=== PATIENT | female | born 1995 | race African-American/Black ===

== ENCOUNTER 2017-10-22 18:46 | Emergency (ER) | payer MEDICAID ==
[~2017-10-22] VITALS: Ht 167.6 cm; Wt 88.6 kg
[~2017-10-22 18:46] MED LIST: AMOXICILLIN 50500 MG PO; MONONESSA 35 MC1 TA1; NO HOME MEDICATIONS; P-D NATAL W/FOL1 TAB PO; ULTRAM 50MG TAB50 MG PO; VOLTAREN 75 DR75 MG PO; ZANTAC 150MG T150 MG PO
[2017-10-22 18:49] VITALS: BP 114/67; PULSE 100; TEMP 98.9
[2017-10-22] MEDS ORDERED: FLAGYL500 MG PO (18:53)
[2017-10-22] MEDS ORDERED: PRENATAL PO (18:53)
[2017-10-22] MEDS ORDERED: CEPHALEXIN500 M1 PO (19:26)
== END 2017-10-22 19:33 | disposition home or self-care (01) ==
LOC: COL.ER 18:46
DX: O99.712 Diseases of the skin and subcutaneous tissue complicating pregnancy, second trimester (principal); L02.31 Cutaneous abscess of buttock; Z3A.15 15 weeks gestation of pregnancy

== ENCOUNTER 2018-04-19 05:48 | Inpatient (IN) | payer MEDICAID ==
[2018-04-19] VITALS (58 sets, daily range): BP systolic 99–152; BP diastolic 53–98; PULSE 64–121; TEMP 97.6–98.4
[~2018-04-19] VITALS: Ht 167.6 cm; Wt 98.6 kg
[~2018-04-19 05:48] MED LIST changes: +CEPHALEXIN500 M1 PO; +FLAGYL500 MG PO; +PRENATAL PO
[2018-04-19 08:33] LABS: BASO % 0.7 % (0.0-2.0); EOS # 0.3 (0.0-0.7); EOS % 5.2 % (0-4.0); GRAN # 2.3 (1.4-6.5); GRAN % 41.7 % (42.2-75.2); HEMOGLOBIN 11.5 g/dl (12.5-16.0); LYMPH # 2.5 (1.2-3.4); LYMPH % 45.5 % (20.0-51.0); MEAN CELL VOLUME 86 fl (80.0-100.0); MEAN CORPUSCULAR HEMOGLOBIN 28 pg (27.0-31.0); MEAN CORPUSCULAR HGB CONC 33 g/dl (33.0-37.0); MEAN PLATELET VOLUME 11.4 fl (7.4-10.4); MONO # 0.4 (0.1-0.6); MONO % 6.7 % (1.7-9.3); PLATELET COUNT 162 K/mm3 (130-400); RED BLOOD COUNT 4.07 M/mm3 (4.10-5.30); REDCELL DISTRIBUTION WIDTH-CV 15.8 % (11.5-14.5)
[2018-04-19 08:34] LABS: HEMATOCRIT 34.8 % (37.0-47.0)
[2018-04-20 00:45] VITALS: BP 110/62; PULSE 77
[2018-04-20 01:30] VITALS: BP 110/62; PULSE 77; TEMP 98
[2018-04-20 07:00] VITALS: BP 120/67; PULSE 83; TEMP 98.7
[2018-04-20 07:45] LABS: HEMOGLOBIN 11.4 g/dl (12.5-16.0)
[2018-04-20 07:51] LABS: HEMATOCRIT 34.6 % (37.0-47.0)
[2018-04-20] MEDS ORDERED: PERCOCET 325 MG1 TA2 PO (09:41)
[2018-04-20] MEDS ORDERED: IBU600 MG PO (09:41)
[2018-04-20 11:00] VITALS: BP 108/58; PULSE 76; TEMP 97.8
[2018-04-20 15:36] VITALS: BP 99/73; PULSE 65; TEMP 97.8
[2018-04-20 20:15] VITALS: BP 116/78; PULSE 84; TEMP 97.8
[2018-04-21 08:03] VITALS: BP 108/59; PULSE 88; TEMP 98.1
== END 2018-04-21 10:50 | disposition home or self-care (01) | DRG 775 ==
LOC: LDRO 05:48 → LDR 05:50 → OB 04-20 01:30
PROVIDERS: Obstetrics & Gynecology
PROC: 10D07Z6 Extraction of Products of Conception, Vacuum, Via Natural or Artificial Opening (ICD-10-PCS; principal; 2018-04-19)
DX: O76 Abnormality in fetal heart rate and rhythm complicating labor and delivery (principal); Z3A.40 40 weeks gestation of pregnancy; Z37.0 Single live birth; O77.0 Labor and delivery complicated by meconium in amniotic fluid; O99.02 Anemia complicating childbirth; O99.214 Obesity complicating childbirth
CPT/HCPCS: J2590; J7120

== ENCOUNTER 2019-12-24 17:52 | Emergency (ER) | payer MEDICAID ==
[~2019-12-24] VITALS: Ht 167.6 cm; Wt 81.8 kg
[~2019-12-24 17:52] MED LIST changes: +IBU600 MG PO; +PERCOCET 325 MG1 TA2 PO
[2019-12-24 17:55] VITALS: BP 116/93; TEMP 98.9
[2019-12-24] MEDS ORDERED: FLEXERIL 1010 MG/TAB PO (21:04)
[2019-12-24] MEDS ORDERED: LIDODERM 5% PATC1 EA TP (21:04)
[2019-12-24 21:13] VITALS: PULSE 83
== END 2019-12-24 21:13 | disposition home or self-care (01) ==
LOC: COL.ER 17:52
DX: S16.1XXA Strain of muscle, fascia and tendon at neck level, initial encounter (principal); S40.012A Contusion of left shoulder, initial encounter; S50.12XA Contusion of left forearm, initial encounter; R20.2 Paresthesia of skin; R40.2412 Glasgow coma scale score 13-15, at arrival to emergency department; V43.52XA Car driver injured in collision with other type car in traffic accident, initial encounter

== ENCOUNTER 2020-07-31 15:28 | Inpatient (IN) | payer MEDICAID ==
[~2020-07-31] VITALS: Ht 165.1 cm; Wt 102.7 kg
[~2020-07-31 15:28] MED LIST changes: +FLEXERIL 1010 MG/TAB PO; +LIDODERM 5% PATC1 EA TP
[2020-08-01] VITALS (74 sets, daily range): BP systolic 88–151; BP diastolic 49–94; PULSE 68–116; TEMP 97.3–98.9
--- NOTE | 2020-08-01 00:05 | NUR ---
G3L2. 39-0. Ambulatory to LDR 4 with significant other for scheduled cytotec induction. Clean gown on. EFM and TOCO explained and applied. Pt denies contractions, leaking of fluids or vaginal bleeding. Reports good movment. Plan of care explained and pts questions answered. 0025: IV started and labs obtained via IV site. LR bolus infusing without difficulties. 0056: FHR strip reactive. Cytotec explained and administered PO per orders. Call light within reach.
[2020-08-01] MEDS ORDERED: NATURAL IRON65 MG PO (00:31)
[2020-08-01 01:41] LABS: BASO % 0.3 % (0.0-2.0); EOS # 0.1 (0.0-0.7); EOS % 1.1 % (0-4.0); GRAN # 3.4 (1.4-6.5); GRAN % 52.3 % (42.2-75.2); HEMOGLOBIN 12.1 g/dl (12.5-16.0); LYMPH # 2.4 (1.2-3.4); LYMPH % 37.2 % (20.0-51.0); MEAN CELL VOLUME 91 fl (80.0-100.0); MEAN CORPUSCULAR HEMOGLOBIN 31 pg (27.0-31.0); MEAN CORPUSCULAR HGB CONC 33 g/dl (33.0-37.0); MEAN PLATELET VOLUME 11.3 fl (7.4-10.4); MONO # 0.5 (0.1-0.6); MONO % 7.9 % (1.7-9.3); PLATELET COUNT 149 K/mm3 (130-400); RED BLOOD COUNT 3.96 M/mm3 (4.10-5.30); REDCELL DISTRIBUTION WIDTH-CV 14.3 % (11.5-14.5)
[2020-08-01 01:42] LABS: HEMATOCRIT 36.2 % (37.0-47.0)
--- NOTE | 2020-08-01 04:37 | NUR ---
Pt off monitors to use restroom and take a quick shower prior to starting pitocin. Plan of care explained.
--- NOTE | 2020-08-01 05:52 | NUR ---
SVE UNCHANGED. FHR strip reactive. Pitocin explained and started at 2mu/hr per protocol. Plan of care explained and pt's questions answered
--- NOTE | 2020-08-01 06:30 | NUR ---
Rests in bed with eyes closed. Rests on right side. Father of the baby in room resting.
--- NOTE | 2020-08-01 07:15 | NUR ---
Ambulates to the bathroom and back. States starting to feel contractions. Denies wanting any medication at this time.
--- NOTE | 2020-08-01 07:45 | NUR ---
Rests in bed with eyes closed. Resperations even and unlabored.
--- NOTE | 2020-08-01 08:15 | NUR ---
0820 Dr. Fowler here, visits with patient. Ultra sound done, and reports head down. [address] Fowler, states unsure of rupture, not much fluid out. Let patient know that to let this nurse know if she feels fluid coming out.
--- NOTE | 2020-08-01 08:45 | NUR ---
Patient called out and states having fluid coming out. Checked on towel, small amount of clear fluid noted. Pad changed. Continues to sleep.
--- NOTE | 2020-08-01 09:30 | NUR ---
Patient awakened by this nurse to adjust her toco. Let her know that we are no picking up contractions. Let her know that it was important to know because she could be having to many to close together.
--- NOTE | 2020-08-01 10:15 | NUR ---
1025 Ambulates to the bathroom and back. Breathes through the contractions.
--- NOTE | 2020-08-01 11:15 | NUR ---
Rests in bed with eyes closed. Awakened by this nurse for vaginal check. Dilated to one, fifty percent effaced, minus three. Ambulates to the bathroom and back.
--- NOTE | 2020-08-01 11:30 | NUR ---
Positioned patient in up right position. States feeling contractions more. Breathes through them. Denies wanting any pain medication at this time.
--- NOTE | 2020-08-01 14:30 | NUR ---
1440 Ambulates to the bathroom and back. Sits up in rocking chair. Denies wanting any pain medication.
--- NOTE | 2020-08-01 15:30 | NUR ---
Calls out. States needing to go to the bathroom. Ambulates to the bathroom and back to bed.
--- NOTE | 2020-08-01 15:45 | NUR ---
States contractions are coming more frequent and lasting longer. Asked patient about pain medications. Denies wanting any medication at this time.
--- NOTE | 2020-08-01 16:30 | NUR ---
Decel down in the sixtys and then back up to 120s. Repositioned to right side. Dr. Fowler notified of decel.
--- NOTE | 2020-08-01 17:00 | NUR ---
1655 Anesthesia here, visits with patient. 1705 Straight shot given by Mak Salinas c.r.n.a.
--- NOTE | 2020-08-01 17:15 | NUR ---
Lies down after epidural.
--- NOTE | 2020-08-01 17:30 | NUR ---
Rests in bed, alert. States feeling better.
--- NOTE | 2020-08-01 18:00 | NUR ---
Dr. Fowler here, vag exam done. States no change. Pitocin increased to 28 nacho units.
--- NOTE | 2020-08-01 18:15 | NUR ---
1820 Report given to Angelica pemberton
--- NOTE | 2020-08-01 20:15 | NUR ---
FHT's with early onset decelerations to 90's. SVE 9cm no change in station, To LW
--- NOTE | 2020-08-01 21:00 | NUR ---
FHT's with deep variables to 60-70's with contractions. Pitocin gtt off.
--- NOTE | 2020-08-01 21:08 | NUR ---
Dr Fowler into room. [address] Fowler. Practise push with no changes noted.
--- NOTE | 2020-08-01 21:15 | NUR ---
To Left lateral with peanut ball. Pitocin gtt restarted @ 10mu/min per Dr Fowler's order. Dr Fowler to L&D desk.
--- NOTE | 2020-08-01 21:35 | NUR ---
SVE by Dr Fowler with rotation and descent of head compared to previous exam. SET up and prepped for delivery. 2145 of femal throught nuchal cord x [address] Fowler.
--- NOTE | 2020-08-01 21:51 | NUR ---
Placenta delivers pont and intact with 3 vessell cord, pitocin gtt to bolus rate. 2153 Perinal inspection complte, pericare prerformed, bed together.
--- NOTE | 2020-08-01 22:15 | NUR ---
Moderate lochia, few small clots with vigorous fundal massage, fundus firm, flow decreased
[2020-08-02] VITALS: BP 126/75; PULSE 120
--- NOTE | 2020-08-02 | NUR ---
0000 UP TO BR WITH ASSIST. VOIDED 600CC. PERICARE DONE. AMB TO 207 AND BG WELL.
[2020-08-02 05:00] VITALS: BP 103/67; PULSE 79; TEMP 98
[2020-08-02 07:00] VITALS: BP 107/67; PULSE 80; TEMP 98
[2020-08-02 07:39] LABS: HEMATOCRIT 36.2 % (37.0-47.0)
[2020-08-02] MEDS ORDERED: IBU600 MG PO (09:17)
[2020-08-02 16:21] VITALS: BP 108/58; PULSE 94; TEMP 98.1
[2020-08-02 20:45] VITALS: BP 98/50; PULSE 82; TEMP 97.8
[2020-08-03 09:01] VITALS: BP 119/68; PULSE 89; TEMP 98
--- NOTE | 2020-08-03 13:27 | NUR ---
Patients discharge instructions reviewed with her and spouse. Appointment reviewed and script for motrin reviewed. PP teaching reviewed and patient verbalizes understanding.
== END 2020-08-03 13:45 | disposition home or self-care (01) | DRG 807 ==
LOC: OB 15:28 → LDR 23:54 → OB 23:54 → LDR 08-01 00:05 → OB 08-01 15:34 → LDR 08-02 00:30 → OB 08-02 00:30
PROVIDERS: ADMIT Obstetrics & Gynecology
PROC: 10E0XZZ Delivery of Products of Conception, External Approach (ICD-10-PCS; principal; 2020-08-01)
PROC: 10907ZC Drainage of Amniotic Fluid, Therapeutic from Products of Conception, Via Natural or Artificial Opening (ICD-10-PCS; 2020-08-01)
DX: O99.02 Anemia complicating childbirth (principal); Z37.0 Single live birth; D64.9 Anemia, unspecified; O69.81X0 Labor and delivery complicated by cord around neck, without compression, not applicable or unspecified; Z3A.39 39 weeks gestation of pregnancy
CPT/HCPCS: J2590; J2795; J7120

== ENCOUNTER → 2020-09-09 | Outpatient (CLI) | payer MEDICAID ==
[~2020-09-09] MED LIST changes: +NATURAL IRON65 MG PO
== END ==
LOC: MC.RAD 14:14
DX: N63.32 Unspecified lump in axillary tail of the left breast (principal)

== ENCOUNTER 2024-02-09 16:59 | Emergency (ER) | payer MEDICAID ==
[~2024-02-09] VITALS: Ht 165.1 cm; Wt 90.0 kg
[~2024-02-09 16:59] MED LIST changes: +MULTI VITAMINS1 TAB PO
[2024-02-09 17:14] VITALS: BP 145/74; TEMP 98.1
[2024-02-09 17:53] LABS: BASO # 0.1 K/mm3 (0.0-0.2); BASO % 1.4 % (0.0-2.0); EOS # 0.2 K/mm3 (0.0-0.7); EOS % 3.3 % (0.0-4.0); GRAN # 1.8 K/mm3 (1.4-6.5); GRAN % 34.4 % (42.2-75.2); LYMPH # 2.9 K/mm3 (1.2-3.4); LYMPH % 56.1 % (20.0-51.0); MEAN CELL VOLUME 79 fl (80.0-100.0); MEAN CORPUSCULAR HGB CONC 31 g/dl (33.0-37.0); MEAN PLATELET VOLUME 9.9 fl (7.4-10.4); MONO # 0.2 K/mm3 (0.1-0.6); MONO % 4.6 % (1.7-9.3); PLATELET COUNT 257 K/mm3 (130-400); RED BLOOD COUNT 3.55 M/mm3 (4.10-5.30); REDCELL DISTRIBUTION WIDTH-CV 14.6 % (11.5-14.5)
[2024-02-09 18:02] LABS: HEMATOCRIT 28.1 % (37.0-47.0); HEMOGLOBIN 8.8 g/dl (12.5-16.0); MEAN CORPUSCULAR HEMOGLOBIN 25 pg (27-31)
[2024-02-09 18:10] LABS: ALBUMIN 3.4 gm/dL (3.5-5.0); BILIRUBIN,TOTAL 0.2 mg/dL (0.2-1.2); C-REACTIVE PROTEIN 0.07 mg/dL (0.00-0.50); CALCIUM 8.8 mg/dL (8.4-10.2); CREATININE, serum 0.76 mg/dL (0.57-1.11); POTASSIUM 3.3 mmol/L (3.5-4.5); TOTAL PROTEIN 6.7 gm/dL (6.2-8.1)
[2024-02-09 18:40] VITALS: PULSE 75
== END 2024-02-09 18:41 | disposition home or self-care (01) ==
LOC: COL.ER 16:59
PROVIDERS: Nurse Practitioner
DX: M79.661 Pain in right lower leg (principal)